=== PATIENT | male | born 1940 | race Caucasian/White ===

== ENCOUNTER → 2017-03-04 | Day surgery (SDC) | payer OTHER, MEDICARE ==
[~2017-03-04] VITALS: Ht 170.2 cm; Wt 120.2 kg
[~2017-03-04] MED LIST: ALBUTEROL SULFAT3 M1 INH; ALLOPURINOL100 MG PO; AMLODIPINE10 MG PO; ASMANEX HF200 MCG/Ac INH; ASPIRIN CHILDRE81 MG PO; ATENOLOL100 MG PO; AZELASTINE HYDRO6 ML OPH; BREO ELLIPTA1 PO1 INH; DIAZEPAM5 MG PO; DIOVAN 160 MG160 MG PO; FUROSEMIDE20 MG PO; FUROSEMIDE40 MG PO; GENERLAC10 GM/15 M PO; HYDROCHLOROTHIA1 TA4 PO; HYDROXYZINE HCL25 MG PO; LEVAQUIN750 MG PO; LIDODERM 5% PAT1 PAT TOP; LYRICA75 MG PO; MAGNESIUM OXID400 MG PO; MASON NATURAL1200 MG PO; MOMETASONE0.05 MG/Ac; MORPHINE SULFAT30 M5 PO; MS CONTIN60 MG PO; NYSTATIN100000 U/2 TOP; PRAVASTATIN SOD10 MG PO; PREDNISONE 20MG20 MG PO; PREDNISONE10 MG PO; PROAIR HFA0.09 MG/Ac INH; PROVENTIL0.09 MG/A1 INH; TRAZODONE50 MG PO; VALSARTAN320 MG PO; VIAGRA25 M1 PO; VITAB121000 PO; ZITHROMAX Z-PA250 M1 PO
--- NOTE | 2017-03-04 09:42 | Operative Report ---
Operative/Inv Procedure Report Surgery Date: 03/04/17 Name of Procedure: Cataract extraction lens implantation right eye Pre-Operative Diagnosis: Age-related cataract right eye 20/60 vision Post-Operative Diagnosis: Same Estimated Blood Loss: none Surgeon/Core Layer Machine Operator: John ALVAREZ,Loco Prado Anesthesia: local monitored anesthesi Complications: None Operative/Procedure Note Note: The patient was brought to the operating room standard monitoring equipment was attached the patient was prepped and draped in the usual fashion for intraocular surgery. A lid speculum was placed to retract the lids. The case was begun by making 2 partial-thickness corneal relaxing incisions at 90. A temporal incision with a 2.4 mm keratome. The eye was stabilized with a Goyal ring during this incision. 1 mL of non-preserved lidocaine was introduced into the anterior chamber to provide anesthesia. The anterior chamber was then filled and deepened with viscoelastic. A curvilinear capsulorrhexis was achieved using a 30-gauge needle and is a cystotome and capsulorrhexis was finished using a Utrata forceps. A second or paracentesis incision was made temporally with a 1 mm MVR blade. The lens was then hydrodissected with balanced salt solution and found to be rotatable. The lens was emulsified using phacoemulsification and a modified four-quadrant cracking technique. The residual cortical material was removed using automated irrigation and aspiration and as much of the anterior capsular rim was cleaned as well as possible. The posterior capsule was cleaned first with the automated machine on a low setting and then manually with a Eleuterio squeegee. The capsular bag was deepened with viscoelastic. The lens a Akreos AO60 20.0 diopter placed into the bag under direct visualization and rotated so that the haptics were at 12 and 6:00. Viscoelastic was then removed from the eye by flushing it out and then by automated irrigation and aspiration. The eye was pressurized to a normal tone. 1/10 of a cc of vancomycin solution was introduced into the anterior chamber to provide antibiotic prophylaxis. The wounds were sealed by hydrating the stroma adjacent to them and the eye was left at a proper tone after the wounds were checked and found not to be leaking. The lid speculum was removed from the orbit. Antibiotic and steroid drops were placed on the eye and then the eye was shielded. Monitoring equipment was removed from the patient and the patient was removed from the operative suite to the holding area. The patient tolerated the procedure well and will be seen in the office tomorrow.
== END ==
LOC: STS 02:24
DX: H25.9 Unspecified age-related cataract (principal); E11.9 Type 2 diabetes mellitus without complications; I10 Essential (primary) hypertension; J44.9 Chronic obstructive pulmonary disease, unspecified; G47.33 Obstructive sleep apnea (adult) (pediatric)
CPT/HCPCS: J2250; V2632

== ENCOUNTER 2017-04-13 02:13 | Observation (INO) | payer OTHER, MEDICARE ==
[~2017-04-13] VITALS: Ht 170.2 cm; Wt 117.9 kg
[~2017-04-13 02:13] MED LIST changes: -ALBUTEROL SULFAT3 M1 INH; +ALBUTEROL0.63 MG/1 INH; +ALLOPURINOL100 M1 PO; -ALLOPURINOL100 MG PO; +AMLODIPINE BESYL5 M1 PO; -AMLODIPINE10 MG PO; -ATENOLOL100 MG PO; +ATENOLOL50 M1 PO; +BREO ELLIPTA 21 EACH INH; +GLIPIZIDE ER5 M1 PO; +IPRATROPIUM BRO30 M2; +LASIX80 M1 PO; +LEXAPRO10 M1 PO; +METOLAZONE2.5 M1 PO; +MORPHINE SULFAT30 M7 PO; +MORPHINE SULFAT60 M4 PO; -MS CONTIN60 MG PO; +POTASSIUM CHLO20 ME2 PO; -PROAIR HFA0.09 MG/Ac INH; +PROAIR HFA8.5 GM INH; +SINGULAIR10 M1 PO; +STOOL SOFTENER100 M3 PO; +TRAZODONE HCL100 M1 PO; +VALSARTAN320 M1 PO; -VALSARTAN320 MG PO; +VITAMIN B-121000 MC3 PO; +VITAMIN D31000 UNI1 PO; +XARELTO10 M1 PO
--- NOTE | 2017-04-13 17:58 | Operative Report ---
Operative/Inv Procedure Report Surgery Date: 04/13/17 Name of Procedure: 1. Ultrasound guided access of the left popliteal vein 2. ilocaval venogram 3. IVUS 4. pharmachomechanical thrombolysis with zolante angiojet catheter 5. illac vein stent with 18 x 90 and 18 x60 wall stent Pre-Operative Diagnosis: left iliac vein thrombosis Post-Operative Diagnosis: same Estimated Blood Loss: less than 50ml Surgeon/Consultative Sales Associate: Nathan tao MD Anesthesia: general endotracheal tube Specimens: none Complications: none Condition: stable, extubated, transferred to pacu Operative Indication: 76 y/o m w/ morbid obesity and chronic venous stasis s/p left iliac vein stent 2 weeks ago. He came to office for post op visit and us demonstrated thrombus within the stent, femoral vein and profunda. given concern for complete stent thrombosis plan was to take pt to or for thrombolysis repeat ivus and possible stent placement. risks/benefits/alternatives explained. Operative/Procedure Note Note: Pt was brought to the OR. time Out was done to verify his name, mrn, . He was then placed under general anethesia then positioned in the supine position. His left popliteal fossae was then prepped and draped in a sterile fashion. 1% lidocaine was injected into the access site. We then used the ultrasound to directly visualize access of the left popliteal vein with a micropuncture set. A harris wire was then placed and we upsized to a 10 turkmen sheath. We then used a wire and catheter to pass through the iliac stent and into the IVUs. We shote a ilocaval venogram that demostrated nearly occlusive thrombis within the common femoral vein/ profunda femoralis vein, external iliac vein and within the stent. We then placed the IVUS into the ivc and withdrew recording the iliac/ femoral vein system. We then decided to proceed with treatment. We then used the zolante 8 turkmen angio jet catheter on thrombectomy mode to peform thrombectomy of femoral vein and iliac vein. We then switched to power pulse mode and injected 10mg of tpa on this mode. We let it twell for 20 minutes. While the tpa was working we used a 16mm x 60 conquest balloon and ballooned the femoral/iliac vein in order to macerate the thrombus. After 20 minutes of dwell time we then once again performed thrombolysis with the zolante catheter. We then repeated the IVUS. The thrombus was improved but there was still residual clot and narrowing of the external iliac vein. We then extended the wall stent with an 18mm x 90 and then 18 x 60 wall stent landing in the common femoral vein. We post dilated the stent with 18mm x 60 balloon we repeated the ivus but the stent was not completely expanded so we used an 18mm x 40 atlas balloon and performed repeat venoplasty. subsequently we repeated ivus and venogram and there was very good flow through the stent and it was well expanded. At this time we were satisifed with our results so we removed the sheath and held pressure. The patient was extubated and transferred to pacu. Findings: thrombus within common femoral/ prfounda vein and external iliac vein/ previous stent. Discharge Disposition: Same Day Admissions
[2017-04-13 19:50] VITALS: BP 170/90
[2017-04-13 20:26] VITALS: BP 155/86
[2017-04-14 01:12] VITALS: BP 180/90
[2017-04-14 03:11] VITALS: BP 170/90
[2017-04-14 06:25] VITALS: BP 160/82
--- NOTE | 2017-04-14 08:20 | RADIOLOGY REPORT ---
EXAMINATION: PROCEDURAL FLUOROSCOPY DURING LEFT LEG ARTERIOGRAM CLINICAL INDICATION: Left arteriogram in OR COMPARISON: None. TECHNIQUE: The procedure was performed by Dr. Romero. FLUOROSCOPY TIME: 1010 seconds. DOSE: 57 rad FINDINGS: The images not labeled. It appears to be a left femoral venogram from a popliteal approach with the patient in prone position. There is a filling defect in the femoral, common femoral, and external iliac veins consistent with clot. IMPRESSION: Procedural fluoroscopy was utilized by Dr. Romero during left femoral venography. Please refer to the procedure report for a detailed description of the procedure and the real-time findings made and acted upon by the proceduralist.
[2017-04-14] MEDS ORDERED: XARELTO10 M1 PO (08:46)
--- NOTE | 2017-04-14 08:53 | Patient Discharge Instructions ---
Discharge Instructions General Discharge Information You were seen/treated for: Blood clot left leg You had these procedures: Thrombolysis and stent placement of left leg clot Watch for these problems: Worsening pain Worsening swelling, loss of sensation to left leg and or foot Bleeding with urination or moving bowels Vomitting or coughing up bright red blood Chest pain, shortness of breath, difficulty breathing Do not soak the wound: Yes No bath, but you may shower: Yes Other wound care: Keep wound clean and dry Wear compression stockings if directed to do so by Dr. Romero Special Instructions: Avoid sitting or standing still for excessive periods of time. It is beneficial to move around in order to prevent the development of future blood clots Take Xarelto 1 tab daily for 30 days. Diet Continue normal diet: Yes Activity Full Activity/No Limits: No Activity Self Limited: Yes Acute Coronary Syndrome Inclusion Criteria At DC or during hospital stay patient has or had the following: ACS DIAGNOSIS No Discharge Core Measures Meds if any: Prescribed or Continued at Discharge Meds if any: NOT Prescribed or Continued at Discharge Congestive Heart Failure Inclusion Criteria At DC or during hospital stay patient has or had the following: CHF DIAGNOSIS No Discharge Core Measures Meds if any: Prescribed or Continued at Discharge Meds if any: NOT Prescribed or Continued at Discharge Cerebrovascular accident Inclusion Criteria At DC or during hospital stay patient has or had the following: CVA/TIA Diagnosis No Discharge Core Measures Meds if any: Prescribed or Continued at Discharge Meds if any: NOT Prescribed or Continued at Discharge Venous thromboembolism Inclusion Criteria VTE Diagnosis No (not a new dx) VTE Type NONE (hx of dvt, here for thrombolyi) VTE Confirmed by (Test) NONE Discharge Core Measures - Per Current guidelines, there needs to be overlap - treatment for the first 5 days of Warfarin therapy. - If discharged on Warfarin prior to 5 days of - overlap therapy, the patient will need to be - assessed for post discharge needs including - *Post discharge parental anticoagulation - *Warfarin and/or parental anticoagulation education - *Follow up date to check INR post discharge At least 5 days overlap therapy as Inpatient No (thrombolysis done) Meds if any: Prescribed or Continued at Discharge Note: Overlap Therapy is Warfarin and Anticoagulant Meds if any: NOT Prescribed or Continued at Discharge
--- NOTE | 2017-04-14 08:57 | Surgical Discharge Summary ---
Visit Information Visit Dates Admission Date: 04/13/17 Discharge Date: 04/14/17 History of Present Illness Chief Complaint: DVT LLE, here for thrombolysis Medical History Blood Transfusion Hx: No Neurological: NONE Cardiovascular: hypertension Respiratory: pneumonia Gastrointestinal: NONE Hepatic: NONE Renal: NONE Musculoskeletal: chronic back pain, gout Psychiatric: NONE Endocrine: NONE Blood Disorders: NONE Cancer(s): NONE SOFTWARE REVERSE ENGINEER/Reproductive: NONE Other Medical Hx: EDWARD History of MRSA: No History of VRE: No History of CDIFF: No Isolation History: Standard Influenza Vaccine: 11/16/16 Surgical History Pertinent Surgical History: L3-L5 decompression (03/16/15) Psychosocial History Who Do You Live With? Spouse Services at Home: None What is Your Primary Language? Nigerian Review of Systems: See H&P Hospital Course Course Attending Physician: Desiree Coley MD Primary Care Physician: Desiree Coley MD Hospital Course: Patient presented to hospital for a scheduled thrombolysis to be done in the operating room by Dr. Romero. He underwent a successful thrombolysis and stent placement which was well tolerated. He recovered on a general surgical floor. His diet was advanced and tolerated. He recieved iv hydration overnight. He voided spontaneously. His neurovascular status remainied intact. His vital signs were stable and within normal limits. He was without complaints of chest pain or shortness of breath. He was evaluated and treated post op day [address] Romero. He was deemed appropriate for discharge. Allergies: Coded Allergies: Sulfa (Sulfonamide Antibiotics) (HIVES, FEVER 01/05/17) Disposition Summary Disposition Principal Diagnosis: Left lower extremity deep vein thrombosis Additional Diagnosis: None Discharge Disposition: home health services Discharge Instructions General Discharge Information Code Status: Full Code Patient's Diet: Heart healthy, advance as tolerated Patient's Activity: As tolerated Follow-Up Instructions/Appts: Follow up with Dr. Romero in one week Medications at Discharge Discharge Medications: Continue taking these medications: Allopurinol (Allopurinol) 100 MG TABLET 1 Tablet ORAL DAILY Comments: Last Taken: 04/14/17 Time: 1045AM Amlodipine Besylate (Amlodipine Besylate) 5 MG TABLET 1 Tablet ORAL DAILY Comments: Last Taken: 04/14/17 Time: 1045AM Atenolol (Atenolol) 50 MG TABLET 1 Tablet ORAL DAILY Comments: Last Taken: 04/14/17 Time: 0100AM Albuterol Sulfate (Albuterol Sulfate) 0.63 MG/3 ML VIAL.NEB 3 Milliliters Inhale through mouth THREE TIMES DAILY Comments: NOT GIVEN Valsartan (Valsartan) 320 MG TABLET 1 Tablet ORAL DAILY Comments: NOT GIVEN Morphine Sulfate (Morphine Sulfate ER) 60 MG TABLET.ER 1 Tablet ORAL TWICE DAILY Comments: NOT GIVEN Morphine Sulfate (Morphine Sulfate) 30 MG TABLET 1 Tablet ORAL EVERY 4 HOURS NEEDED as needed for PAIN Comments: NOT GIVEN Albuterol Sulfate (Proair Hfa) 90 MCG HFA.AER.AD 1 PUFF Inhale through mouth TWICE DAILY Comments: NOT GIVEN Fluticasone/Vilanterol (Breo Ellipta 200-25 Mcg INH) 200 MCG-25 MCG/DOSE BLST.W.DEV 1 PUFF Inhale through mouth DAILY Comments: NOT GIVEN IN HOSPITAL Furosemide (Lasix) 80 MG TABLET 1 Tablet ORAL DAILY Comments: Last Taken: 04/14/17 Time: 1045AM Trazodone HCl (Trazodone HCl) 100 MG TABLET 1 Tablet ORAL Every night Comments: Last Taken:04/13/17 Time: 2200PM Metolazone (Metolazone) 2.5 MG TABLET 1 Tablet ORAL Instructions: TAKES WEEKLY ON THURSDAY Comments: NOT GIVEN Potassium Chloride (Potassium Chloride) 20 MEQ TAB.ER.PRT 1 Tablet ORAL Every Day Comments: NOT GIVEN IN HOSPITAL Montelukast Sodium (Singulair) 10 MG TABLET 1 Tablet ORAL DAILY Comments: NOT GIVEN IN HOSPITAL Glipizide (Glipizide ER) 5 MG TAB.ER.24 1 Tablet ORAL DAILY Comments: NOT GIVEN Cyanocobalamin (Vitamin B-12) 1,000 MCG TABLET 1 Tablet ORAL DAILY Comments: NOT GIVEN Cholecalciferol (Vitamin D3) (Vitamin D3) 1,000 UNIT CAPSULE 1 Capsule ORAL DAILY Comments: NOT GIVEN Ipratropium [place] (Ipratropium [place]) 21 MCG (0.03 %) SPRAY 2 2 THREE TIMES DAILY Comments: NOT GIVEN Escitalopram Oxalate (Lexapro) 10 MG TABLET 1 Tablet ORAL DAILY Comments: Last Taken: 04/14/17 Time: 1045AM Docusate Sodium (Stool Softener) 100 MG CAPSULE 1 Tablet ORAL TWICE DAILY Comments: Last Taken:04/13/17 Time: 2200PM Rivaroxaban (Xarelto) 10 MG TABLET 1 Tablet ORAL DAILY Qty = 30 Comments: Last Taken: 04/14/17 Time: 1045AM This prescription has been renewed
--- NOTE | 2017-04-14 09:02 | PN- Vascular Surgery ---
See Addendum Subjective Subjective: No acute overnight events reported. Patient feeling restless but is without complaints of chest pain, shortness of breath and difficulty breathing. No complaints of nausea or vomittinig. Has been voiding spontaneously. Objective Vital Signs and I&Os Vital Signs Date Time Temp Pulse Resp B/P B/P Pulse O2 O2 Flow FiO2 Mean Ox Delivery Rate 04/14 0825 95 Room Air 04/14 0727 22 95 Room Air 04/14 0625 99.1 61 20 160/82 94 CPAP 04/14 0311 99.1 70 20 170/90 93 CPAP 04/14 0118 68 180/90 04/14 0112 99.0 68 20 180/90 94 CPAP 04/14 0000 CPAP 04/13 2026 155/86 04/13 1950 Nasal 1.5L Cannula 04/13 1950 99.5 67 20 170/90 94 Nasal 1.5L Cannula Intake & Output 04/14 1600 04/14 0800 04/14 0000 04/13 1600 04/13 0800 04/13 0000 Intake Total 1680 930 Output Total 950 1425 Balance 730 -495 Intake, IV 1200 450 Intake, Oral 480 480 Output, Urine 950 1425 Patient 260 lb Weight Physical Exam: General: Alert and oriented x3, no acute distress Cardiac: RRR, s1s2 Pulm: CTA bilaterally Abd: Non-tender, non-distended Extremties: Moves all extremities, distal sensation intact. Motor 5/5 in plantar and dorsi flexion. Skin warm and well perfused. DP pulses palpable bialetrally. LLE demond bandage removed. Posterior knee dressing dry and intact. Calf swollen but compressible and non-tender. Skin warm and dry. Assessment/Plan Assessment/Plan This is a 76 year old male, POD 1, s/p thrombolysis for LLE dvt Spoke with Dr Romero -kathy iv fluids -OOB -Rewrap tight demond bandage -Resume xarelto today -Resume home meds Discharge to home today Core Measures Venous Thromboembolism VTE Risk Factors VTE (Previous) No Mechanical VTE Prophylaxis d/t N/A MechProphylax Ordered No VTE Pharm Prophylaxis d/t NA PharmProphylax ordered
[2017-04-14 10:50] VITALS: BP 132/80
== END 2017-04-14 14:43 | disposition home health service (06) ==
LOC: SDA 02:13 → 2NB 02:13 → ENRESERV 18:47 → ENTRNSPT 19:06 → EDTRNSPTSTS 19:21 → EDTRNSPT 19:21 → 2NB 19:28 → CMPTRNSPT 19:35 → 2NB 04-14 09:36 → ENTRNSPT 04-14 14:19 → EDTRNSPTSTS 04-14 14:36 → 2NB 04-14 14:43 → CMPTRNSPT 04-14 14:51
DX: I80.12 Phlebitis and thrombophlebitis of left femoral vein (principal); I87.1 Compression of vein; I10 Essential (primary) hypertension; E66.9 Obesity, unspecified
CPT/HCPCS: 2NBP; 6040; 73552; 93005; 93010; 96374; 97161-GP; C1725; G0378; G8978-GP; G8979-GP; G8980-GP; J1644; J2405; J2997; J3490; J7040; J7042; Q9967